=== PATIENT | female | born 1965 | race Caucasian/White ===

== ENCOUNTER 2024-06-02 06:29 | Day surgery (SDC) | payer OTHER ==
[~2024-06-02] VITALS: Ht 149.9 cm; Wt 54.4 kg
[2024-06-02] MEDS ORDERED: fentaNYL citrate 0.05 MG/ML VIAL ONE (07:23)
[2024-06-02] MEDS: fentaNYL citrate 0.05 MG/ML VIAL IVP ONE (07:51)
[2024-06-02] MEDS: LIDOCAINE 2% 100 MG/5 ML UJET TP ONE (07:59)
== END 2024-06-02 09:00 | disposition home or self-care (01) ==
LOC: MDS 06:29 → MMU 06:32 → MDS 09:00
PROVIDERS: ATTEND Internal Medicine Gastroenterology
DX: Z12.11 Encounter for screening for malignant neoplasm of colon (principal); K57.30 Diverticulosis of large intestine without perforation or abscess without bleeding; I10 Essential (primary) hypertension; E78.00 Pure hypercholesterolemia, unspecified; E11.9 Type 2 diabetes mellitus without complications; Z80.0 Family history of malignant neoplasm of digestive organs; Z79.84 Long term (current) use of oral hypoglycemic drugs; Z79.899 Other long term (current) drug therapy
CPT/HCPCS: 45378; 82948; J3010